=== PATIENT | female | born 1960 | race Caucasian/White ===

== ENCOUNTER → 2022-05-03 13:01 | Outpatient (CLI) | payer BC, SELFPAY ==
--- NOTE | ~2022-05-03 | MM_ITS ---
EXAMINATION: MM screening gamaliel BI w laura HISTORY: Screening mammogram TECHNIQUE: Craniocaudal and mediolateral oblique 3-D tomosynthesis images were obtained and synthetic 2-D images were generated. CAD analysis was submitted and interpreted. COMPARISON: 05/28/2018, 08/29/2015, 02/24/2013 bilateral screening mammogram examinations BREAST PARENCHYMAL COMPOSITION: The breasts are heterogeneously dense, which may obscure small masses . FINDINGS: There are bilateral chronic benign microcalcifications. There is no evidence of suspicious mass, calcification, or architectural distortion to suggest malignancy in either breast. There has be en no suspicious interval change. IMPRESSION: 1. No mammographic evidence of malignancy. 2. Recommend routine screening mammography in one year. BI-RADS Category 2: Benign finding(s). Reviewed, dictated and finalized at location A. IEVAL SPECIALIST
--- NOTE | ~2022-05-03 | DEXA_ITS ---
Bone Density Report Name: SHARAN TRINH Age: 61 Sex: Female Ethnicity: White Date of : 1960 Indication: postmenopausal; screening for osteoporosis; Referring Provider: DIANN KIRK Study: Bone densitometry was performed. Exam Date: May 03, 2022 Accession number: [id number] Bone Density: Region BMD T-score Z-score Classification AP Spine (L1-L4) 1.007 -0.4 1.0 Normal Femoral Neck (Left) 0.915 0.6 1.9 Normal Total Hip (Left) 1.060 1.0 1.9 Normal Femoral Neck (Right) 0.888 0.4 1.6 Normal Total Hip (Right) 1.053 0.9 1.8 Normal Total Hip Mean 1.057 1.0 1.9 Normal World Health Organization criteria for BMD impression classify patients as: Normal (T-score at or above -1.0), Osteopenia (T-score between -1.0 and -2.5), or Osteoporosis (T-score at or below -2.5). 10-year Fracture Risk: FRAX not reported because: All T-scores for Spine Total, Hip Total, Femoral Neck at or above -1.0 Previous Exams: Region Exam Age BMD T-score BMD Change BMD Change Date g/cm2 vs Baseline vs Previous AP Spine(L1-L4) 05/03/2022 61 1.007 -0.4 -0.004 -0.004 05/28/2018 57 1.011 -0.3 Total Hip(Left) 05/03/2022 61 1.060 1.0 0.009 0.009 05/28/2018 57 1.051 0.9 Total Hip(Right) 05/03/2022 61 1.053 0.9 -0.015 -0.015 05/28/2018 57 1.067 1.0 *Denotes significance at 95% confidence level, LSC for AP Spine = 0.022 g/cm2, LSC for Total Hip = 0.027 g/cm2 Clinical Information Provided by Patient: Has used the following medications: Vitamin D, MULTI VITAMIN Patient maximum height was 62.7 Menopause Age: 59 Does not regularly consume dairy products Drinks caffeinated beverages Onset of menses at age 14 Number of children 0 Impression: The patient has normal bone mass. No significant bone loss was observed. Discussion: BONE DENSITY IS ABOVE THE MINIMUM DESIRABLE LEVEL AT ALL SKELETAL SITES TESTED. This patient?s bone mineral density is above the minimum desirable level (T-score -1.0 or better) at all sites measured. The patient should follow a healthful lifestyle (good nutrition with adequate calcium and vitamin D, and appropriate weight-bearing exercise). Follow-Up: Consider repeating this study in 5 years or sooner if there is some new clinical indication. Reported by: WALDO on 05/03/2022 1:21:00 PM. eder Goss and sherry
== END ==
PROVIDERS: PCP Family Medicine; Visit Provider Obstetrics & Gynecology Gynecology
DX: Z12.31 Encounter for screening mammogram for malignant neoplasm of breast (principal); Z78.0 Asymptomatic menopausal state; M85.88 Other specified disorders of bone density and structure, other site
CPT/HCPCS: 77063; 77067; 77080

== ENCOUNTER 2023-01-11 05:06 | Day surgery (SDC) | payer BC, SELFPAY ==
[2023-01-01 09:10] VITALS: BMI 31.1
--- NOTE | 2023-01-10 13:36 | P.PNAN_ITS ---
Anes - Initial Pre Proc Eval Procedure: Operation Date: 01/11/23 09:00 Proposed Procedures p Screening Colonoscopy - Danyel Curran MD Date/Time: 01/10/23 13:36 Surgeon: Danyel Curran MD Pre Op Diagnosis: neoplasm screening Patient Data Age: 62 Gender: F Height: 1.57 m Weight: 77.25 kg Allergies Allergy/AdvReac Type Severity Reaction Status Date / Time No Known Allergies Allergy Unverified 01/11/23 07:44 Home Medications Medication Instructions Recorded Confirmed Type cholecalciferol (vitamin D3) 25 25 mcg PO DAILY #30 caps 04/23/22 01/01/23 Rx mcg (1,000 unit) capsule vitamin E (dl, acetate) 180 mg 180 mg PO DAILY #30 caps 04/23/22 01/01/23 Rx (400 unit) capsule Daily Probiotic 1 cap PO DAILY 01/01/23 01/01/23 History Pre-Biotic 1 tab-cap PO DAILY 01/01/23 01/01/23 History biotin 10,000 mcg capsule 10,000 mcg PO DAILY 01/01/23 01/01/23 History bcgpgtm-vwhwplrix-brdf tablet 3 tablet PO DAILY 01/01/23 01/01/23 History evening primrose oil 1,300 mg 1,300 mg PO DAILY 01/01/23 01/01/23 History capsule vit C 250 mg-vit E 90 mg-zinc 40 1 tablet PO BID 01/01/23 01/01/23 History mg-copper 1 az-uvhrdn-jscfzu capsule (PreserVision AREDS-2) Patient hx anesthesia problems: none Family hx anesthesia problems: none Results Review: All pre-operative results and documents have been reviewed as part of the pre- operative evaluation. [facility] Past Medical History Medical History (Updated 01/11/23 @ 08:22 by Danyel Curran MD) Vitamin D deficiency Social History Social History (Updated 04/23/22 @ 15:07 by Krys Sanchez MA) Smoking status: Never smoker Alcohol intake: current Drinks per week: 1 Substance use: never Substance use type: does not use Lack of Transportation: No Lack of Food: Never True Current Housing: I Have Housing Concerned About Future Housing: No Difficulty Paying Gas/Electric Bills: No Difficulty Paying for Meds: No Currently Unemployed: No Education: Master's Degree or Higher Difficulty w/ Childcare or Family Care: No Living arrangements: with family Occupation/Education: occupation Gender identity (if verbalized by the patient): Female Spiritual care concerns: No Anes - Eval Final PreProcedure Day of Procedure 01/10/23 13:36 Patient weight: obese Heart: regular rate and rhythm Lungs: clear to auscultation Airway: Mallampati scale class II Neurological: alert and oriented Last oral intake: >/= 8 hours ASA classification: II Emergent: no Anesthetic plan: proceed Anesthesia type and monitoring: general GIVS and standard monitoring Results Review: All pre-operative results and documents have been reviewed as part of the pre- operative evaluation. Informed Consent: The patient's anesthetic plan and its attendant risks and benefits were discussed with the patient/family/POA. Questions were solicited and answers provided to the satisfaction of the patient/family/POA.
[2023-01-11 07:45] VITALS: BP 153/92; PULSE 80; RESP 20; TEMP 36.5; O2SAT 99
[2023-01-11] MEDS: LACTATED RINGERS 1,000 ML 150 ML IV CONT (07:54)
--- NOTE | 2023-01-11 08:20 | PM.HPGS ---
History of Present Illness History of Present Illness Consent: Risks, benefits, and alternatives have been discussed and questions answered. Patient agrees to proceed with procedure. Chief complaint: neoplasm screening Narrative: Erum Velazco is a 62 year old female Presents for screening colonoscopy. Patient's current weight appetite and bowel movements are normal. Patient denies abdominal pain. She has had no bleeding. Family history is noncontributory. Review of Systems Review of Systems: Review of systems noncontributory. [facility] Past Medical History Medical History (Updated 01/11/23 @ 08:22 by Danyel Curran MD) Vitamin D deficiency Social History Social History (Updated 04/23/22 @ 15:07 by Krys Sanchez MA) Smoking status: Never smoker Alcohol intake: current Drinks per week: 1 Substance use: never Substance use type: does not use Lack of Transportation: No Lack of Food: Never True Current Housing: I Have Housing Concerned About Future Housing: No Difficulty Paying Gas/Electric Bills: No Difficulty Paying for Meds: No Currently Unemployed: No Education: Master's Degree or Higher Difficulty w/ Childcare or Family Care: No Living arrangements: with family Occupation/Education: occupation Gender identity (if verbalized by the patient): Female Spiritual care concerns: No Meds Home Medications and Allergies Home Medications Medication Instructions Recorded Confirmed Type cholecalciferol (vitamin D3) 25 25 mcg PO DAILY #30 caps 04/23/22 01/01/23 Rx mcg (1,000 unit) capsule vitamin E (dl, acetate) 180 mg 180 mg PO DAILY #30 caps 04/23/22 01/01/23 Rx (400 unit) capsule Daily Probiotic 1 cap PO DAILY 01/01/23 01/01/23 History Pre-Biotic 1 tab-cap PO DAILY 01/01/23 01/01/23 History biotin 10,000 mcg capsule 10,000 mcg PO DAILY 01/01/23 01/01/23 History rugshsx-qslvhvmph-exnv tablet 3 tablet PO DAILY 01/01/23 01/01/23 History evening primrose oil 1,300 mg 1,300 mg PO DAILY 01/01/23 01/01/23 History capsule vit C 250 mg-vit E 90 mg-zinc 40 1 tablet PO BID 01/01/23 01/01/23 History mg-copper 1 gi-wrujyb-rtgnga capsule (PreserVision AREDS-2) Allergies Allergy/AdvReac Type Severity Reaction Status Date / Time No Known Allergies Allergy Unverified 01/11/23 07:44 Vital Signs Vital Signs - 24 hr 01/11/23 07:45 Temperature 97.7 F Pulse Rate 80 Respiratory Rate 20 Blood Pressure 153/92 H Pulse Oximetry 99 Oxygen Delivery Room Air Exam Narrative: Physical exam reveals patient to be alert. Vital signs stable. HEENT exam is unremarkable. Patient is anicteric. Lungs are clear to auscultation and percussion. Heart is without murmur or extra sounds. Abdomen bowel sounds are present soft nontender with no hepatosplenomegaly. Digital external rectal exam is normal. Assessment and Plan Assessment and plan (1) Encounter for screening colonoscopy: Code(s): Z12.11 - Encounter for screening for malignant neoplasm of colon Status: Acute Assessment and Plan: Patient presents today for screening colonoscopy. She appears to be at average risk for colon polyps. Further recommendations may be given after endoscopy.
[2023-01-11 09:29] VITALS: BP 117/69; PULSE 76; RESP 18; O2SAT 98
[2023-01-11 09:39] VITALS: BP 109/67; PULSE 82; RESP 17; O2SAT 99
[2023-01-11 09:49] VITALS: BP 132/91; PULSE 66; RESP 15; O2SAT 100
== END 2023-01-11 09:59 | disposition home or self-care (01) ==
PROVIDERS: PCP Family Medicine; Visit Provider Internal Medicine Gastroenterology
PROC: 0DJD8ZZ Inspection of Lower Intestinal Tract, Via Natural or Artificial Opening Endoscopic (ICD-10-PCS; CPT 45378; principal; 2023-01-11 09:00)
DX: Z12.11 Encounter for screening for malignant neoplasm of colon (principal); K64.8 Other hemorrhoids; K57.30 Diverticulosis of large intestine without perforation or abscess without bleeding; E55.9 Vitamin D deficiency, unspecified; E66.9 Obesity, unspecified; Z68.31 Body mass index [BMI] 31.0-31.9, adult
CPT/HCPCS: 45378; J2704; J7120

== ENCOUNTER 2023-08-27 13:12 | Outpatient (CLI) | payer BC, SELFPAY ==
--- NOTE | ~2023-08-27 | MM_ITS ---
EXAMINATION: MM screening gamaliel BI w laura HISTORY: Screening TECHNIQUE: Craniocaudal and mediolateral oblique 3-D tomosynthesis images were obtained and synthetic 2-D images were generated. CAD analysis was submitted and interpreted. COMPARISON: Comparison to multiple prior studies sequentially, with oldest reviewed study dated 09/01. BREAST PARENCHYMAL COMPOSITION: Not dense: There are scattered areas of fibroglandular density. FINDINGS: There is no evidence of suspicious mass, calcification, or architectural distortion to sugg est malignancy in either breast. There has been no suspicious interval change. IMPRESSION: 1. No mammographic evidence of malignancy. 2. Recommend routine screening mammography in one year. BI-RADS Category 1: Negative Reviewed, dictated and finalized at location B.
== END 2023-08-27 13:13 ==
LOC: MICIMG 13:13
PROVIDERS: PCP Family Medicine; Visit Provider Obstetrics & Gynecology Gynecology
DX: Z12.31 Encounter for screening mammogram for malignant neoplasm of breast (principal)
CPT/HCPCS: 77063; 77067

== ENCOUNTER 2024-12-23 13:42 | Outpatient (CLI) | payer BC, SELFPAY ==
--- NOTE | ~2024-12-23 | MM_ITS ---
EXAMINATION: MM screening gamaliel BI w laura HISTORY: Screening TECHNIQUE: Craniocaudal and mediolateral oblique 3-D tomosynthesis images were obtained and synthetic 2-D images were generated. CAD analysis was submitted and interpreted. COMPARISON: 05/03/2022 BREAST PARENCHYMAL COMPOSITION: The breasts are heterogeneously dense, which may obscure small masses. FINDINGS: There is no evidence of suspicious mass, or architectural distortion to suggest malignancy. Asymmetry in the outer left breast, posterior depth, seen in the left CC projection with a few indeterminate calcifications. IMPRESSION: 1. Asymmetry in the outer left breast, posterior depth, seen in the left CC projection with a few indeterminate calcifications. The study is incomplete. A diagnostic mammogram and a diagnostic ultrasound are recommended. BI-RADS 0: Incomplete-Need additional imaging evaluation. Reviewed, dictated and finalized at location Q. IMPRESSION: 1. Asymmetry in the outer left breast, posterior depth, seen in the left CC pro jection with a few indeterminate calcifications. The study is incomplete. A edson gnostic mammogram and a diagnostic ultrasound are recommended. BI-RADS 0: Incomplete-Need additional imaging evaluation.
== END 2024-12-23 13:43 | disposition home or self-care (01) ==
LOC: MICIMG 13:43
PROVIDERS: PCP Family Medicine; Visit Provider Obstetrics & Gynecology Gynecology
DX: Z12.31 Encounter for screening mammogram for malignant neoplasm of breast (principal); R92.8 Other abnormal and inconclusive findings on diagnostic imaging of breast
CPT/HCPCS: 77063; 77067

== ENCOUNTER 2025-02-12 08:43 | Outpatient (CLI) | payer BC, SELFPAY ==
--- NOTE | ~2025-02-12 | MMUS_ITS ---
EXAMINATION: MM diagnostic mammogram LT w laura, US breast LT limited HISTORY: Additional imaging TECHNIQUE: Craniocaudal and mediolateral oblique 3-D tomosynthesis images were obtained and synthetic 2-D images were generated. CAD analysis was submitted and interpreted. Grayscale sonography over the area(s) of interest with color Doppler if there is a finding. COMPARISON: December 23, 2024. 2023 and 2022. BREAST PARENCHYMAL COMPOSITION: Dense: The breasts are heterogeneously dense MAMMOGRAM FINDINGS: A mass persists in the area questioned. It has some faint associated calcifications. There are some spiculated margins. There are no suspicious calcifications. No unexplained architectural distortion is seen. There are no skin or nipple abnormalities identified. There is no adenopathy seen on the images submitted. ULTRASOUND FINDINGS: Sonography through the 2:00 left breast demonstrates a hypoechoic mass with an irregular shape. The margins are ill defined to angular. The maximum dimension is on the order of 15 mm. This accounts for the mammographic mass. There is no axillary adenopathy seen sonographically. IMPRESSION: The mass in question is highly suspicious. Ultrasound-guided core biopsy is recommended. BI-RADS 5 - Highly suggestive of malignancy - appropriate action should be taken. Reviewed, dictated and finalized at location B. GER FRENCH IMPRESSION: The mass in question is highly suspicious. Ultrasound-guided core biopsy is rec ommended. BI-RADS 5 - Highly suggestive of malignancy - appropriate action should be take n.
== END 2025-02-12 08:44 | disposition home or self-care (01) ==
LOC: MICIMG 08:43
PROVIDERS: PCP Family Medicine; Visit Provider Obstetrics & Gynecology Gynecology
DX: R92.8 Other abnormal and inconclusive findings on diagnostic imaging of breast (principal)
CPT/HCPCS: 76642; 77061; 77065; G0279

== ENCOUNTER 2025-02-25 08:28 | Outpatient (CLI) | payer BC, SELFPAY ==
--- NOTE | ~2025-02-25 | MMUS_ITS ---
PROCEDURE: US breast biopsy LT w image, MM post biopsy diagnostic LT CLINICAL HISTORY: 64-year-old female with suspicious left breast mass who presents for ultrasound-guided core needle biopsy procedure. COMPARISON: 02/12/2025 Following informed consent including risks, benefits, and possible complications, the patient was brought to the ultrasound suite. A time-out procedure was performed. A preliminary ultrasound of the left breast was performed, redemonstrating irregular shaped markedly hypoechoic mass with spiculated margins at 2:00, 9 cm FN. The patient was prepped and draped in the usual sterile fashion. 1% lidocaine was instilled into the subcutaneous tissues. 1% lidocaine without epinephrine was injected into the deep tissues just inferior to the lesion. Approximately 15cc lidocaine was administered. A small skin kelly was made. Multiple core samples were obtained with a 14-gauge multi pass biopsy needle. A post biopsy metal marker was placed at the biopsy site. Postprocedural mammogram of the left breast in craniocaudal and mediolateral projections completed with heterogeneously dense breast, which may obscure small masses reveal the post biopsy [place] butterfly marker in good position. The patient tolerated the procedure well and was without immediate postprocedural complications. IMPRESSION: Successful ultrasound guided biopsy of left breast mass. A post biopsy metal marker was placed at the biopsy site, which is seen on postprocedural mammogram. The patient tolerated the procedure well without immediate postprocedure complications. The patient was given postprocedural instructions and sent home in stable condition. Pathology report pending Reviewed, dictated and finalized at location A. MAKER IMPRESSION: Successful ultrasound guided biopsy of left breast mass. A post bio psy metal marker was placed at the biopsy site, which is seen on postprocedural mammogram. The patient tolerated the procedure well without immediate postprocedure compli cations. The patient was given postprocedural instructions and sent home in sta ble condition. Pathology report pending
--- OUTSIDE RECORDS SUMMARY | 2025-02-25 08:43 | XMS_ITS | Clinical Summary ---
Author Organization [facility] Address [address] [place] [address] Phone Care Team Providers Care Combat Information Center Officer Name Role Phone Anil Sidhu MD Primary Care Provider [phone] Medications cyclobenzaprine (FLEXERIL) 5 mg TabletIndicatio ns:Left leg injury, initial encounter,Cellu litis of left lower extremity,Acute pain of left lower extremity Take 1-2 Tablets (5-10 mg) by mouth every 8 hours as needed for Spasm, Discomfort or Pain. 25 Tablet 3 Active collagenase (SANTYL) 250 unit/gram OintmentIndicat ions:Left leg injury, initial encounter,Cellu litis of left lower extremity,Acute pain of left lower extremity Apply to affected area 2 times daily. 30 Gram 1 3 Active Active Problems Problem Noted Date Diagnosed Date Left leg injury, initial encounter 07/30/2022 Social History Tobacco Use Types Packs/Day Years Used Date Smoking Tobacco: Never Assessed Comments Unknown Sex and Gender Information Value Date Recorded Sex Assigned at Not on file Legal Sex Female 9:34 AM CDT Gender Identity Not on file Sexual Orientation Not on file Last Filed Vital Signs Vital Sign Reading Time Taken Comments Blood Pressure 128/62 09/18/2022 12:19 PM CDT Pulse - - Temperature - - Respiratory Rate - - Oxygen Saturation - - Inhaled Oxygen Concentration - - Weight 78.9 kg (174 lb) 09/18/2022 12:19 PM CDT Height 157.5 cm (5' 2) 09/18/2022 12:19 PM CDT Body Mass Index 31.83 09/18/2022 12:19 PM CDT Plan of Treatment Health Maintenance Due Date Last Done Comments DTAP/TDAP/TD VACCINES (1 - Tdap) 1981 HPV/Cotest (21-29) 07/11/1983 CERVICAL CANCER SCREENING 1992 HPV/Cotest (30-65) 1992 PAP SMEAR 1992 BREAST CANCER SCREENING 2002 COLORECTAL SCREENING 07/11/2007 Colorectal Cancer Screening 07/11/2007 FIT-DNA Q 3 years 07/11/2007 FIT/FOBT Q 1 year 07/11/2007 Flex Sig/CT Colonography Q 5 years 07/11/2007 ZOSTER VACCINE (1 of 2) 2012 INFLUENZA VACCINE (#1) 2024 RSV VACCINE (60+ or ) (1 - 1-dose 75+ series) 2037 Insurance [employer] PPO Care Teams Combat Information Center Officer Relationship Specialty Start Date End Date Anil Sidhu MD [address] [place] [phone] PCP - General Family Practice 07/30/22
--- OUTSIDE RECORDS SUMMARY | 2025-02-25 08:43 | XMS_ITS | Clinical Summary ---
Author Organization [facility] Address [address] [place] [address] Care Team Providers Care Gauge Maker Name Role Phone Unavailable Primary Care Provider Unavailabl e Source Comments [facility],non-owned Affiliates and Associated Physician Practices is amultiple site organization consisting of ambulatory clinics and hospital sitesin [place], [place], [place] and [place]. This disclosure is being madepursuant to the Care Everywhere program and may not contain all information available regarding this patient. Last updated 17.[facility] Social History Tobacco Use Types Packs/Day Years Used Date Smoking Tobacco: Never Assessed Comments Unknown Sex and Gender Information Value Date Recorded Sex Assigned at Not on file Legal Sex Female 11:21 AM CDT Gender Identity Not on file Sexual Orientation Not on file Plan of Treatment Health Maintenance Due Date Last Done Comments COLOGUARD (AGES 45-75) - COL ON CA SCREENING 1960 COLON MONITORING 1960 COLONOSCOPY - COLON CA SCREENING 1962 CT COLONOGRAPHY - COLON CA SCREENING 1960 Colorectal Cancer Screening 1960 FIT - COLON CA SCREENING 1962 FLEX SIG - COLON CA SCREENING 1960 LIPID TESTING 1960 MAMMOGRAM 1962 HIV SCREENING 1977 HEPATITIS C SCREENING 07/05/1980 DTAP/TDAP/TD VACCINES (1 - Tdap) 1981 PNEUMOCOCCAL VACCINE 50+ (1 of 1 - PCV) 2012 ZOSTER VACCINE (1 of 2) 2012 DEPRESSION SCREENING 03/11/2024 COVID-19 VACCINE (1 - 2024-2 6 season) 2024 INFLUENZA VACCINE (#1) 2024 Respiratory Syncytial Virus (RSV) Vaccine Pt: or over 60 yrs (1 - 1-dose 75+ series) 2037 HEPATITIS B VACCINE Aged Out No longe r eligible based on patient's age to complete this topic HIB VACCINE Aged Out No longer eligi ble based on patient's age to complete this topic HPV VACCINE Aged Out No longer eligi ble based on patient's age to complete this topic MENINGOCOCCAL (Group B) VACC INE SHARED DECISION-MAKING Aged Out No longer eligibl e based on patient's age to complete this topic MENINGOCOCCAL GROUPS A/C/Y/W VACCINE Aged Out No longer eligible b ased on patient's age to complete this topic Insurance
--- OUTSIDE RECORDS SUMMARY | 2025-02-25 08:43 | XMS_ITS | Encounter Summary ---
Author Organization [facility] Address [address] [place] [address] Care Team Providers Care Cook Helper Meat Name Role Phone Unavailable Primary Care Provider Unavailabl e Encounter Details Date Type Department Care Team (Late st Contact Info) Description 05/29/2018 Lab Requisition [facility] Care DermPath Lab [address] [place] [id number] Luci Crane DO [address] [facility] [address]L DEPT [place] [address] Social History Tobacco Use Types Packs/Day Years Used Date Smoking Tobacco: Never Assessed Comments Unknown Sex and Gender Information Value Date Recorded Sex Assigned at Not on file Legal Sex Female 11:21 AM CDT Gender Identity Not on file Sexual Orientation Not on file documented as of this encounter Plan of Treatment Not on file documented as of this encounter Procedures Procedure Name Priority Date/Time Associated Diagnosis Comments DERMATOPATHOLOGY Routine 05/28/2018 12:0 0 AM CDT documented in this encounter Results * DERMATOPATHOLOGY (05/28/2018 12:00 AM CDT) Case Report Dermatopathology Report Case: [id number] Authorizing Provider: Luci Crane DO Collected: 05/28/2018 12:00 AM Pathologist: Audra Preston MD Received: 05/29/2018 06:20 AM Specimens: A) - Skin, left breast B) - Skin, suprapubic 9 12:48 PM CDT DERMATOPATHOLOGY LABORATORY Final Diagnosis Specimen A. SKIN, left breast: PIGMENTED SEBORRHEIC KERATOSIS (L82.1) (see microscopic description and comment) Specimen B. 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 B: Nevus R/O atypia 1-2 years. 12:48 PM CDT DERMATOPATHOLOGY LABORATORY Gross Description Specimen A: Received is one formalin filled container labeled with the patient's name and designated left breast. The specimen consists of a shave measuring [id number]. Jar 0. Specimen B: Received is one formalin filled container labeled with the patient's name and designated suprapubic. The specimen consists of a shave measuring [id number]. Jar 0. 12:48 PM CDT DERMATOPATHOLOGY LABORATORY Microscopic Description Specimen A. SKIN, left breast: Sections show an acanthotic lesion composed of relatively uniform keratinocytes. There is hyperkeratosis and pseudo horn cysts. Pigment is present in the keratinocytes composing this tumor. COMMENT: The histopathologic findings of the portion of the lesion sampled are reassuring. However, as this lesion is present at the margins of the specimen, clinicopathological correlation is recommended as to the nature of the remaining lesion. Specimen B. SKIN, suprapubic: This is a compound nevus. There is melanin pigment in the stratum corneum. There is architectural disorder characterized by a lentiginous proliferation of melanocytes between irregular nevus nests of cells along the dermal epidermal junction. The melanocytes show eliseo cytoplasm consistent with special site changes. There is underlying fibroplasia of the papillary dermis. The intradermal component is bland in appearance and matures with depth. (Compound Lance's Nevus or Compound Dysplastic Nevus) 12:48 PM CDT DERMATOPATHOLOGY LABORATORY Disclaimer An external and internal positive and negative controls are appropriate for the histochemical, immunohistochemical and immunofluorescence stain(s) in this case (if any), except where stated explicitly. The performance characteristics of the stain(s) cited in this report were developed and its performance characteristic determined by the Dermatopathology Laboratory at [facility], directed by Dr. Jorge Preston. These tests need not be, and therefore are not, approved by the [place] Food and Drug Administration. The tests are used for clinical purposes. Billing Codes Specimen Charges Stain Charges 36289 09990 1 1 03/22/201 9 12:48 PM CDT DERMATOPATHOLOGY LABORATORY Embedded Images 9 12:48 PM CDT DERMATOPATHOLOGY LABORATORY Pathology/Cytology TISSUE SPECIMEN FROM SKIN / Unknown 05/28/2018 05/29/2018 6:20 AM CDT Miscellaneous samples (specimen) TISSUE SPECIMEN FROM SKIN / Unknown 05/28/2018 05/29/2018 6:20 AM CDT us Luci Crane DO LAB - PATHOLOGY/CYTOLOGY ORDERABLES Final Result DERMATOPATHOLOGY LABORATORY [facility] - Department of Dermatology [address] [place] [address], 5th Floor Lab [address] [phone] documented in this encounter Visit Diagnoses Not on filedocumented in this encounter
--- NOTE | 2025-02-25 10:28 | S_PTH ---
PATIENT: Erum Velazco LOC: [facility] U#:[id number] AGE/SX: 64/F ROOM: RE02/25/[address]: Elizabeth Garcia MD : 1960 BED: DIS: 02/25/2025 SPEC #: [id number] RECD: 02/25/25 12:13 STATUS: MARIE REByron #: [id number] JUSTIN: 02/25/25 10:[address]: Elizabeth Garcia DEPT: [facility] Surgical RECD BY: Martina Muse ENTERED: 02/25/25 12:13 SP TYPE: Surgical OTHR DR: Anil Sidhu MD Tissues: A - Breast Biopsy Procedures: P63 Hematoxylin and Eosin Stain E-Cadherin Gross and Microscopic Level 4 ER-60 NC-60 MIB-60 HER 2-60 CK 5
== END 2025-02-25 08:29 | disposition home or self-care (01) ==
LOC: ANHFOHIMG 08:29
PROVIDERS: PCP Family Medicine; Visit Provider Surgery
DX: R92.8 Other abnormal and inconclusive findings on diagnostic imaging of breast (principal); N63.21 Unspecified lump in the left breast, upper outer quadrant
CPT/HCPCS: 19083; 77065; 88305; 88342; 88360; A4648